=== PATIENT | female | born 2000 | race Caucasian/White ===

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

== ENCOUNTER 2021-02-06 20:46 | Emergency (ER) | payer BC, OTHER ==
[2021-02-06] MEDS ORDERED: Acetaminophen/Codeine 300-30 MG Tab PO ONE (20:47)
--- NOTE | 2021-02-06 21:07 | EDM.PDOC ---
ED HPI GENERAL MEDICAL PROBLEM - General Stated Complaint: TOOTH PAIN Time Seen by Provider: 02/06/21 21:05 Source of Information: Reports: Patient History Limitations: Reports: No Limitations - History of Present Illness INITIAL COMMENTS - FREE TEXT/NARRATIVE: Tooth pain x 3days. Taking Amoxil,and Motrin,no relief. - Related Data Allergies Allergy/AdvReac Type Severity Reaction Status Date / Time latex Allergy Rash Verified 03/30/20 23:14 Home Meds: Home Meds NK [No Known Home Meds] 03/30/20 [History] Past Medical History Musculoskeletal History: Reports: Other (See Below) Other Musculoskeletal History: scoliosis Neurological History: Reports: Head Trauma, Other (See Below) 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 Social & Family History - Family History Family Medical History: No Pertinent Family History - Caffeine Use Caffeine Use: Reports: Soda ED ROS ENT - Review of Systems Review Of Systems: Comprehensive ROS is negative, except as noted in HPI. ED EXAM, ENT - Physical Exam Exam: See Below Exam Limited By: No Limitations General Appearance: Alert, No Apparent Distress Mouth/Throat: Normal Inspection, Dental Tenderness, Other (Large cavity tooth #12). No: Normal Teeth Departure - Departure Time of Disposition: 21:06 Disposition: Home, Self-Care 01 Condition: Good Clinical Impression: Dental infection - Discharge Information Referrals: PCP,None [Primary Care Provider] - - Problem List & Annotations (1) Dental infection SNOMED Code(s): 056201995 Code(s): K04.7 - PERIAPICAL ABSCESS WITHOUT SINUS Status: Acute Current V isit: Yes - Problem List Review Problem List Initiated/Reviewed/Updated: Yes - Assessment/Plan Plan: T#3 tid PRN
[2021-02-06 21:43] VITALS: BP 121/74; PULSE 65
== END 2021-02-06 21:15 | disposition home or self-care (01) ==
LOC: FB.ED 20:46
DX: K04.7 Periapical abscess without sinus (principal); Z91.040 Latex allergy status
CPT/HCPCS: 99282; A9270-GY

== ENCOUNTER 2021-11-06 23:40 | Emergency (ER) | payer MEDICAID, OTHER ==
[2021-11-06] MEDS ORDERED: Lidocaine 1% 20 ML MDV INFILT ONE (23:41)
[2021-11-07 00:03] VITALS: BP 129/98; PULSE 102
[2021-11-07] MEDS ORDERED: Diphtheria,Pertussis(Acell),Tetanus Vaccine 0.5 ML Syringe IM ONE (00:15)
== END 2021-11-07 00:30 | disposition home or self-care (01) ==
LOC: FB.ED 23:40
DX: S61.211A Laceration without foreign body of left index finger without damage to nail, initial encounter (principal); Z91.040 Latex allergy status; Z23 Encounter for immunization; W26.0XXA Contact with knife, initial encounter
CPT/HCPCS: 12001; 90471; 90715; 99282-25; 99283

== ENCOUNTER 2022-03-03 00:35 | Emergency (ER) | payer MEDICAID ==
[2022-03-03] MEDS ORDERED: Sodium Chloride 0.9% 1,000 ML IV ONE (00:53)
[2022-03-03] MEDS ORDERED: Ondansetron 4 MG Tab.DIS PO PRN (00:56)
[2022-03-03] MEDS ORDERED: Acetaminophen 325 MG Tab PO ONE (00:57)
[2022-03-03 01:27] LABS: ESTIMATED GFR 126 mL/min (>60)
[2022-03-03] MEDS ORDERED: Amoxicillin 500 MG Cap PO ONE (01:53)
[2022-03-04 01:46] VITALS: BP 124/89; PULSE 72
== END 2022-03-03 04:00 | disposition home or self-care (01) ==
LOC: FB.ED 00:35
DX: O99.611 Diseases of the digestive system complicating pregnancy, first trimester (principal); K04.7 Periapical abscess without sinus; K02.9 Dental caries, unspecified; O21.9 Vomiting of pregnancy, unspecified; O99.331 Smoking (tobacco) complicating pregnancy, first trimester; O99.321 Drug use complicating pregnancy, first trimester; F12.10 Cannabis abuse, uncomplicated; Z3A.08 8 weeks gestation of pregnancy; Z91.040 Latex allergy status; Z88.8 Allergy status to other drugs, medicaments and biological substances
CPT/HCPCS: 36415; 80053; 85025; 96360; 99284; A9270; J7030; Q0162; 99282

== ENCOUNTER 2022-04-18 18:38 | Emergency (ER) | payer SELFPAY ==
[2022-04-18] MEDS ORDERED: Acetaminophen/HYDROcodone 325-5 MG Tab PO ONE ×2 (18:39→19:23)
[2022-04-18] MEDS ORDERED: Amoxicillin 500 MG Cap PO ONE (19:23)
[2022-04-18] MEDS ORDERED: Amoxicillin/Clavulanate K 875-125 MG Tab PO ONE (19:29)
[2022-04-19 00:29] VITALS: BP 111/74; PULSE 90
== END 2022-04-18 19:49 | disposition designated cancer center or children's hospital (05) ==
LOC: FB.ED 18:38
DX: O99.612 Diseases of the digestive system complicating pregnancy, second trimester (principal); K04.7 Periapical abscess without sinus; Z91.040 Latex allergy status; Z91.048 Other nonmedicinal substance allergy status; Z3A.16 16 weeks gestation of pregnancy
CPT/HCPCS: 99284; A9270-GY

== ENCOUNTER 2022-10-27 21:51 | Emergency (ER) | payer MEDICAID ==
[2022-10-27 22:13] VITALS: PULSE 104
[2022-10-27] MEDS: Clindamycin HCl 150 MG Cap PO ONE (22:38)
[2022-10-27] MEDS: traMADol 50 MG Tab PO ONE (22:47)
[2022-10-27 23:29] VITALS: BP 154/102
== END 2022-10-27 22:55 | disposition home or self-care (01) ==
LOC: FB.ED 21:51
DX: K05.6 Periodontal disease, unspecified (principal); Z91.040 Latex allergy status; Z91.048 Other nonmedicinal substance allergy status
CPT/HCPCS: 99282; A9270

== ENCOUNTER 2025-04-02 00:54 | Emergency (ER) | payer MEDICAID, OTHER ==
[2025-04-02] MEDS ORDERED: Acetaminophen/HYDROcodone 325-5 MG Tab PO ONE (00:55)
[2025-04-02] MEDS: hydrOXYzine HCl 50 MG/ML SDV IM ONE (01:23)
[2025-04-02] MEDS: Ketorolac 30 MG/ML SDV IM ONE (01:23)
[2025-04-02 01:33] VITALS: BP 139/85; PULSE 63
== END 2025-04-02 01:39 | disposition home or self-care (01) ==
LOC: FB.ED 00:54
DX: G43.909 Migraine, unspecified, not intractable, without status migrainosus (principal); K04.7 Periapical abscess without sinus; I10 Essential (primary) hypertension; J45.909 Unspecified asthma, uncomplicated; F17.200 Nicotine dependence, unspecified, uncomplicated; Z91.018 Allergy to other foods; Z91.040 Latex allergy status; Z91.048 Other nonmedicinal substance allergy status; Z79.899 Other long term (current) drug therapy
CPT/HCPCS: 96372; 99283; A9270-GY; J1885; J3410

== ENCOUNTER 2025-05-14 11:13 | Emergency (ER) | payer MEDICAID ==
[2025-05-14] MEDS: Ketorolac 30 MG/ML SDV IM ONE (11:59)
[2025-05-14 12:40] VITALS: BP 107/82; PULSE 89
== END 2025-05-14 12:40 | disposition home or self-care (01) ==
LOC: FB.ED 11:13
DX: K04.7 Periapical abscess without sinus (principal); I10 Essential (primary) hypertension; F17.210 Nicotine dependence, cigarettes, uncomplicated; Z91.048 Other nonmedicinal substance allergy status; Z91.040 Latex allergy status; Z79.899 Other long term (current) drug therapy
CPT/HCPCS: 96372; 99283; A9270; J1885

== ENCOUNTER 2025-06-03 22:16 | Emergency (ER) | payer MEDICAID ==
[2025-06-03 22:53] LABS: BASOPHILS ABSOLUTE AUTO 0.0 x10-3/uL (0.0-0.1); BASOPHILS PERCENT AUTO 0.4 % (0.2-1.5); EOSINOPHILS ABSOLUTE AUTO 0.5 x10-3/uL (0.0-0.8); EOSINOPHILS PERCENT AUTO 4.8 % (0.6-8.1); LYMPHOCYTES ABSOLUTE AUTO 2.1 x10-3/uL (1.0-4.4); LYMPHOCYTES PERCENT AUTO 18.4 % (18.4-52.1); MEAN PLATELET VOLUME 8.4 fL (7.1-12.4); MONOCYTES ABSOLUTE AUTO 0.8 x10-3/uL (0.3-1.0); MONOCYTES PERCENT AUTO 6.9 % (4.4-15.7); NEUTROPHILS ABSOLUTE AUTO 7.9 x10-3/uL (1.5-6.3); NEUTROPHILS PERCENT AUTO 69.5 % (30.8-76.2); PLATELET COUNT,PLT 217 x10(3)uL (151-488); RED BLOOD CELL COUNT 4.75 x10(6)uL (3.60-5.20); RED CELL DISTRIBUTION WIDTH 12.7 % (12.3-16.5); WHITE BLOOD CELL COUNT,WBC 11.4 x10-3/uL (3.0-10.3)
[2025-06-03 22:57] LABS: BLOOD UREA NITROGEN,BUN 6 mg/dL (7-18); CARBON DIOXIDE,CO2 26 mmol/L (21-32); CHLORIDE,CL 107 mmol/L (100-110); CREATININE 0.8 mg/dL (0.55-1.02); ESTIMATED GFR 105 mL/min (>60); GLUCOSE RANDOM 101 mg/dL (80-116); POTASSIUM,K 3.8 mmol/L (3.5-5.3); SODIUM,NA 139 mmol/L (135-145)
[2025-06-03 23:03] LABS: A/G RATIO 1.1; ALANINE AMINOTRANSFERASE,ALT 25 U/L (12-36); ASPARTATE AMNIOTRANSFERASE,AST 19 IU/L (5-25); BILIRUBIN TOTAL 0.4 mg/dL (0.1-1.3); PROTEIN TOTAL,TP 7.2 g/dL (6.0-8.0)
[2025-06-03 23:58] VITALS: BP 122/71; PULSE 109
== END 2025-06-03 23:53 | disposition home or self-care (01) ==
LOC: MERGE 22:16 → FB.ED 22:16
DX: J20.9 Acute bronchitis, unspecified (principal); F17.210 Nicotine dependence, cigarettes, uncomplicated
CPT/HCPCS: 36415; 71046; 80053; 85025; 86140; 87428-QW; 99284; A9270-GY